=== PATIENT | female | born 1975 | race Caucasian/White ===

== ENCOUNTER 2023-02-17 08:27 | Day surgery (SDC) | payer MEDICARE, OTHER ==
[~2023-02-17 08:27] MED LIST: SODIUM CHLORIDE 0.9% 1,000 ML IV SCH
[2023-02-17] MEDS ORDERED: SODIUM CHLORIDE 0.9% 500 ML 500 ML IV ONE (09:31)
[2023-02-17 09:51] VITALS: BP 148/79; PULSE 78; RESP 16; TEMP 97.6
--- NOTE | 2023-02-18 13:39 | P.EPPROC ---
- EP Procedure Note Electrophysiology Procedure Note: Diagnoses Recurrent syncope Twelve-lead EKG Sinus mechanism normal VT narrow QRS normal ST segments Tilt table test per protocol Baseline blood pressure 133/71 mmHg Baseline heart rate 73 beats minute Patient was tilted upright at an angle of 70 per protocol Her blood pressure remained elevated between 140 260 mmHg systolic and the diastolics were in the 80s She complained of the room spinning No syncope She was laid supine at the end of the procedure. Impression Normal twelve-lead EKG Elevated blood pressure readings in the upright position No evidence for neurocardiogenic syncope or dysautonomia Patient complained that the room was spinning
== END 2023-02-17 11:44 | disposition home or self-care (01) ==
LOC: MERGE 08:27 → CATHEP 08:27
PROVIDERS: ATTEND Internal Medicine Clinical Cardiac Electrophysiology
DX: R55 Syncope and collapse (principal); I11.9 Hypertensive heart disease without heart failure; Z79.82 Long term (current) use of aspirin; Z90.89 Acquired absence of other organs; Z98.890 Other specified postprocedural states; Z98.891 History of uterine scar from previous surgery; Z82.49 Family history of ischemic heart disease and other diseases of the circulatory system; Z79.899 Other long term (current) drug therapy
CPT/HCPCS: 81025; 93660

== ENCOUNTER 2024-01-20 09:47 | Day surgery (SDC) | payer MEDICARE, OTHER ==
[~2024-01-20 09:47] MED LIST changes: +LIDOCAINE 1% (10MG/ML) FOR IV START INTRADERMA PRN; -SODIUM CHLORIDE 0.9% 1,000 ML IV SCH
[2024-01-20 10:19] VITALS: TEMP 97.5
[2024-01-20] MEDS: IV FLUID CONTINUATION 1,000 ML IV ONE (10:26)
[2024-01-20] MEDS: LACTATED RINGERS 1,000 ML IV SCH (10:26)
[2024-01-20] MEDS ORDERED: PROPOFOL 10 MG/ML 20 ML VIAL IV ONE (10:53)
--- NOTE | 2024-01-20 11:09 | P.PCN ---
Date of Procedure: 01/20/24 Procedure(s) Performed: BRIEF HISTORY: Patient is a 48-year-old pleasant white female scheduled for an elective colonoscopy as a part of screening for colon cancer. PROCEDURE PERFORMED: Colonoscopy. PREOPERATIVE DIAGNOSIS: Screening for colon cancer. IV sedation per Anesthesia. PROCEDURE: After informed consent was obtained, the patient, was brought into the endoscopy unit. IV sedation was administered by Anesthesia under continuous monitoring. Digital rectal examination was normal. Initially the Olympus CF-160 flexible video colonoscope was then inserted in the rectum, gradually advanced into the cecum without any difficulty. Careful examination was performed as the scope was gradually being withdrawn. Ileocecal valve and the appendiceal orifice were visualized and appeared normal. Prep was excellent. Mucosa of the cecum, ascending colon, transverse colon, descending colon, sigmoid colon, and rectum appeared normal. Retroflexion was performed in the rectum and no lesions were seen. The patient tolerated the procedure well. IMPRESSION: Normal-appearing colon from rectum to cecum with no evidence of colorectal neoplasia. RECOMMENDATIONS: Findings of this examination were discussed with the patient as well as her family. She was advised to have repeat screening colonoscopy in 10 years.
[2024-01-20 11:12] VITALS: PULSE 74; RESP 16
[2024-01-20 12:10] VITALS: BP 133/81
== END 2024-01-20 11:45 | disposition home or self-care (01) ==
LOC: ORWHC2ENDO 09:47
PROVIDERS: ATTEND Internal Medicine Gastroenterology
DX: Z12.11 Encounter for screening for malignant neoplasm of colon